=== PATIENT | female | born 1975 | race Caucasian/White ===

== ENCOUNTER 2021-09-19 11:39 | Emergency (ER) | payer OTHER ==
[2021-09-19] MEDS ORDERED: diphenhydrAMINE 50 MG/ML SDV IM ONE (12:03)
[2021-09-19] MEDS ORDERED: LORazepam 2 MG/ML SDV IM ONE (12:03)
[2021-09-19] MEDS ORDERED: Haloperidol Lactate 5 MG/ML SDV IM ONE (12:04)
[2021-09-19] MEDS ORDERED: Ziprasidone Mesylate 20 MG Vial IM ONE (12:05)
[2021-09-19] MEDS ORDERED: Water For Injection, Sterile 20 ML SDV INJECT ONE (12:05)
[2021-09-19] MEDS ORDERED: Sodium Chloride 0.9% 1,000 ML IV ONE (12:16)
[2021-09-19] MEDS ORDERED: LORazepam 2 MG/ML SDV IVPUSH ONE ×2 (12:19→13:54)
[2021-09-19 12:57] LABS: ACETAMINOPHEN <2.0 ug/mL; BLOOD UREA NITROGEN,BUN 10 mg/dL (7.0-18.0); CARBON DIOXIDE,CO2 23.4 mmol/L (21.0-32.0); CHLORIDE,CL 103 mmol/L (98-107); GLUCOSE RANDOM 104 mg/dL (74-106); POTASSIUM,K 4.3 mmol/L (3.5-5.1); SODIUM,NA 140 mmol/L (136-145)
[2021-09-19 12:58] LABS: ESTIMATED GFR 59.4 ml/min
[2021-09-19] MEDS ORDERED: Valproate Sodium 500 MG/5 ML SDV IV STA (17:49)
== END 2021-09-19 20:30 ==
LOC: MW.ED 11:39
DX: F23 Brief psychotic disorder (principal); R41.82 Altered mental status, unspecified; R45.1 Restlessness and agitation; Z88.0 Allergy status to penicillin; Z88.2 Allergy status to sulfonamides; Z91.041 Radiographic dye allergy status; Z20.822 Contact with and (suspected) exposure to COVID-19
CPT/HCPCS: 36415; 70450; 71045; 80053; 80143; 80179; 80305; 80307; 81001; 82140; 82550; 82803; 83540; 83735; 84100; 84443; 84703; 85025; 87635; 93005; 96361; 96365; 96372; 96375; 96376; 99285; J1200; J1630; J2060; J3490; J7030; 93010; 99291; 99292; U0002